=== PATIENT | male | born 1955 | race Caucasian/White ===

== ENCOUNTER 2023-07-06 08:29 | Emergency (ER) | payer MEDICARE, SELFPAY ==
[2023-07-06 08:41] VITALS: BP 149/81; PULSE 81; RESP 18; TEMP 36.4; O2SAT 99; BMI 28.8
--- NOTE | 2023-07-06 09:21 | ED.DIZZY ---
HPI - Dizziness General Time Seen by Provider: 09:21 Date Seen: 07/06/23 Chief Complaint: Unspecified Complaint, Adult Stated Complaint: dizzy / off balance Time Seen by Provider: 07/06/23 09:21 Source: patient and RN notes reviewed Mode of arrival: ambulatory Limitations: no limitations History of Present Illness HPI Narrative: Trista is a 68-year-old male that is coming in with concern of sense of imbalance that he noted last night. He has a part-time job, started noticing it towards the end of his shift. He had significant difficulty walking 50 ft to get into his home from his parking spot. He states he felt like he was almost 8 ft tall and felt wobbly. It was not a sense of spinning, there was no vertigo with this. He has had no headache, no double vision. He has not noticed any focal motor weakness. He does have diabetes and neuropathy. He notes balance can sometimes being issue but this seemed to be significantly worse last night. There is reportedly a history of a TIA about 4 years ago where he had 2 months of double vision. Patient notes he still takes an 81 mg aspirin daily, did take it this morning. He notes no respiratory symptoms, no sense of arrhythmia or palpitations. Patient admits that he does feel much better as a sense of imbalance than he did last night. He notes he slept well. He does wonder if he should be in the ER at this time, did reassure him that I do support him being here. MD elicited complaint: difficulty walking Related Data Home Medications Medication Instructions Recorded Confirmed atorvastatin 07/06/23 gabapentin 07/06/23 lisinopril 07/06/23 metformin 07/06/23 Allergies Allergy/AdvReac Type Severity Reaction Status Date / Time No Known Drug Allergies Allergy Verified 07/06/23 08:46 Review of Systems Status of ROS: Reports: 6 or more systems reviewed and unremarkable except as noted in History and below PFSH PFSH Social History Smoking Status: Never smoker How often do you have a drink containing alcohol: never AUDIT-C Alcohol total score: 0 Non-prescribed substance use: marijuana (any form) Exam Const: Vital Signs, click to edit/add: Vital Signs - 24 hr 07/06/23 08:41 Temperature 97.5 F L Pulse Rate [Pulse Oximeter] 81 Respiratory Rate 18 Blood Pressure [Ri ght Upper Arm] 149/81 H Pulse Oximetry 99 Oxygen Delivery Me thod Room Air Patient is a 68-year-old male that is alert, interactive, no apparent distress. He is sitting up on the edge of the bed when I come in. Pupils are equal round reactive to light, extraocular muscles intact, no nystagmus. Symmetrical facial function, speech is normal. TMs canals normal. Neck is supple, no adenopathy, no thyromegaly masses or nodules. Lungs are clear, good air entry. CV regular rate and rhythm, no murmur, normal S1-S2, no S3-S4. Strength is 5/5 and symmetric. Normal rapid alternating finger movements. No resting tremor noted. Patient does have difficulty with tandem gait and does step out after the 3rd step. He does start to sway with his eyes closed after a couple seconds. His strength in his lower extremities is excellent though. Documenting provider has reviewed patient's vital signs: yes Course Course ED Course: Will have patient monitored on cardiac monitoring and pulse oximetry, doubt arrhythmia but will look for this. He will have an EKG and basic labs done. Have asked nursing staff to get stroke Neurology on the phone to talk to them about this case. I do wonder if this patient should just have an MRI, before setting off on any imaging modality would like their input. Do think that this imbalance could actually be cerebrovascular disease, it is reassuring that he is improved. He does have underlying peripheral neuropathy in his lower extremities but would be unlikely that it would be so of symptomaticly worse last night for short period. Reevaluation(s) Time of Reevaluation #1: 13:30 Reevaluation #1: Have reviewed that imaging is showing no evidence of any stroke. He will stay on his aspirin, follow up in clinic. We did review that if he ever had further concerns of stroke issues, it is always recommended to be evaluated emergently. Consultations Consultation #1: Did speak with Dr. Blackman from stroke Neurology at [facility]. We did have to page them back. She agrees with doing just MRI imaging. She does think we should proceed with the MRA MRI for complete workup given his risk factors. I will contact her back if there is any concerning change on this. I will update patient on the plan. Time: 10:41 Vital Signs Vital signs: Initial Vital Signs Temperature 97.5 F L 07/06/23 08:41 Temperature Source Temporal Artery Scan 07/06/23 08:41 Pulse Rate 81 07/06/23 08:41 Respiratory Rate 18 07/06/23 08:41 Blood Pressure 149/81 H 07/06/23 08:41 Blood Pressure Mean 103 07/06/23 08:41 Blood Pressure Position Sitting 07/06/23 08:41 Pulse Oximetry 99 07/06/23 08:41 Oxygen Delivery Method Room Air 07/06/23 08:41 Vital Signs Temperature 97.5 F L 07/06/23 08:41 Pulse Rate 81 07/06/23 08:41 Respiratory Rate 18 07/06/23 08:41 Blood Pressure 149/81 H 07/06/23 08:41 Pulse Oximetry 99 07/06/23 08:41 Oxygen Delivery Method Room Air 07/06/23 08:41 Temperature 97.5 F L 07/06/23 08:41 Pulse Rate 81 07/06/23 08:41 Respiratory Rate 18 07/06/23 08:41 Blood Pressure 149/81 H 07/06/23 08:41 Pulse Oximetry 99 07/06/23 08:41 Oxygen Delivery Method Room Air 07/06/23 08:41 MDM - Dizziness Lab Data Attestation: I reviewed the patient's lab results. Labs: Lab Results 07/06/23 Range/Units 10:00 WBC 9.22 (4.50-11.00) K/uL RBC 4.82 (4.30-5.90) m/uL Hgb 15.2 (13.5-17.5) gm/dL Hct 44.7 (37.0-53.0) % MCV 93 (80-100) fL MCH 32 (26-34) pg MCHC 34 (32-36) gm/dL RDW Coeff of Luca 12.4 (11.5-15.5) % Plt Count 263 (140-440) K/uL Neut % (Auto) 73.4 H (42.0-72.0) % Lymph % (Auto) 19.3 L (20-44) % [place] % (Auto) 6.1 (0.0-11.0) % Eos % (Auto) 0.8 (0.0-7.0) % Baso % (Auto) 0.3 (0.0-3.0) % Neut # (Auto) 6.80 (1.7-7.0) K/uL Lymph # (Auto) 1.80 (0.90-2.90) K/uL [place] # (Auto) 0.60 (0.00-0.90) K/UL Eos # (Auto) 0.07 (0.00-0.50) K/uL Baso # (Auto) 0.03 (0.00-0.30) K/uL Abs Immat Gran (auto) 0.01 (0.00-0.30) K/uL Imm/Tot Granulo (auto) 0.1 % Sodium 134 L (135-149) mmol/L Potassium 4.4 (3.6-5.1) mmol/L Chloride 100 (96-114) mmol/L Carbon Dioxide 24 (20-32) mmol/L Anion Gap 10 (7-15) mEq/L BUN 23 (7-30) mg/dL Creatinine 0.9 (0.5-1.5) mg/dL Estimated Creat Clear 81.01 Estimated GFR 94 ml/min Glucose 131 H (60-115) mg/dL Calcium 10.0 (8.4-10.6) mg/dL Total Bilirubin 0.4 (0.1-1.5) mg/dL AST 25 (12-35) U/L ALT 38 (4-50) U/L Alkaline Phosphatase 61 (40-150) U/L Total Protein 7.8 (6.0-8.3) g/dL Albumin 4.7 (3.3-5.0) g/dL Imaging Data MR Brain: Attestation: I have reviewed the pertinent imaging results. Radiologist's impression: Patient: TRISTA HICKEY Facility:?[facility] Patient ID:?[id number] Site Patient ID:?[id number]. Site :?1955 Study:?MRI Head W/ and W/O Cont 20 CC DOATER-07/06/2023 12:43:25 PM Ordering Physician:EPRLA PREEZ Final Report: Indication: Unsteadiness. Dizziness. Technique: MRI Head: Performed without and with IV contrast. MRA Head: Performed without IV contrast. MRA Neck: Performed without and with intravenous contrast. Contrast: 20 cc Dotarem. Comparison: None relevant available at the time of interpretation. Findings: MRI Head: The corpus callosum and pituitary gland appear unremarkable. Clivus is intact. Mild degenerative change visualized upper cervical spine. There is no restricted diffusion. No intracranial hemorrhage. The ventricles are proportionate to the cerebral sulci. The 4th ventricle appears midline. The basal cisterns appear patent. No abnormal extra-axial fluid collection identified. Mild parenchymal volume loss. Mild scattered T2 FLAIR hyperintense foci within the subcortical and periventricular white matter, favored to represent chronic ischemic microvascular disease. There is no intracranial mass, abnormal mass-effect or midline shift identified. No abnormal enhancement. The orbits are preserved. Mild paranasal sinus mucosal disease. Sebaceous cyst left parietal scalp. MRA Head: The visualized first and second order intracranial vessels are unremarkable. No occlusion/filling defect or acquired arterial stenosis identified. No aneurysm or vascular malformation seen. MRA Neck: Suboptimal due to contrast bolus timing. No definite evidence for hemodynamically significant internal carotid artery stenosis by NASCET criteria. The cervical segments of both vertebral arteries are patent as visualized given poor contrast opacification. Impression: MRI Head: 1. No acute/subacute infarct. 2. Mild chronic ischemic microvascular disease. MRA Head: 1. No hemodynamically significant stenosis or occlusion. 2. No aneurysm. MRA Neck: 1. Suboptimal due to poor contrast bolus timing. 2. No evidence for hemodynamically significant ICA stenosis by NASCET criteria. Dictated by Harman Mcclellan MD @ 07/06/2023 1:02:31 PM (Electronic Signature) ECG Data Attestation: I personally reviewed and interpreted this ECG as follows: (Normal sinus rhythm, 66 beats per minute. QT corrected 410 milliseconds. No ischemia, no arrhythmia.) ECG interpretation date: 07/06/23 ECG interpretation time: 10:05 Critical Care Time Critical Care Time Critical Care Time: No Discharge Plan Discharge Clinical Impression: Dysequilibrium Patient Disposition: Home, Self-Care Condition: Stable Instructions: Vertigo (ED), Lightheadedness (ED) Additional Instructions: Need to follow-up with your primary care provider within the next week. I would certainly consider getting a referral to physical therapy to see if this helps with balance. There is no acute evidence of stroke today. You still should maintain on your 81 mg aspirin given your history. Activity Level: Activity as Tolerated Prescriptions: No Action gabapentin metformin lisinopril atorvastatin Follow Up/Referrals: Jason Rice PA-C [Primary Care Provider] - Stand Alone Forms: [employer] Info Instructions
[2023-07-06 10:05] LABS: Basophils Absolute Auto 0.03 K/uL (0.00-0.30); Basophils Percent Auto 0.3 % (0.0-3.0); Eosinophils Absolute Auto 0.07 K/uL (0.00-0.50); Eosinophils Percent Auto 0.8 % (0.0-7.0); Hematocrit 44.7 % (37.0-53.0); Hemoglobin* 15.2 gm/dL (13.5-17.5); Immature Granulocytes Abs Auto 0.01 K/uL (0.00-0.30); Immature Granulocytes Pct Auto 0.1 %; Lymphocytes Percent Auto 19.3 % (20-44); Mean Corpuscular HGB Conc 34 gm/dL (32-36); Mean Corpuscular Hemoglobin 32 pg (26-34); Mean Corpuscular Volume 93 fL (80-100); Monocytes Percent Auto 6.1 % (0.0-11.0); Neutrophils Percent Auto 73.4 % (42.0-72.0); Platelet Count* 263 K/uL (140-440); RDW Coefficient of Variation % 12.4 % (11.5-15.5); Red Blood Count 4.82 m/uL (4.30-5.90); White Blood Count* 9.22 K/uL (4.50-11.00)
[2023-07-06 10:14] LABS: Slide Review Reflex No
[2023-07-06 10:26] LABS: Albumin* 4.7 g/dL (3.3-5.0); Chloride* 100 mmol/L (96-114)
[2023-07-06 10:27] LABS: Potassium* 4.4 mmol/L (3.6-5.1); Sodium* 134 mmol/L (135-149)
[2023-07-06 10:29] LABS: Alkaline Phosphatase* 61 U/L (40-150); Anion Gap 10 mEq/L (7-15); Aspartate Amino Transferase* 25 U/L (12-35); Bilirubin Total* 0.4 mg/dL (0.1-1.5); Blood Urea Nitrogen* 23 mg/dL (7-30); Carbon Dioxide* 24 mmol/L (20-32); Creatinine* 0.9 mg/dL (0.5-1.5); Est. Creatinine Clearance* 81.01; Estimated Glomerular Filt Rate 94 ml/min; Total Protein* 7.8 g/dL (6.0-8.3)
[2023-07-06 10:30] LABS: Alanine Aminotransferase* 38 U/L (4-50); Glucose* 131 mg/dL (60-115)
--- NOTE | 2023-07-06 10:37 | MR_ITS ---
Final Report Patient: TRISTA HICKEY Facility:?[facility] Patient ID:?[id number] Site Patient ID:?[id number]. Site :?1955 Study:?MRI Head W/ and W/O Cont 20 CC DOATERM-07/06/2023 12:43:25 PM Ordering Physician:PERLA PEREZ Final Report: Indication: Unsteadiness. Dizziness. Technique: MRI Head: Performed without and with IV contrast. MRA Head: Performed without IV contrast. MRA Neck: Performed without and with intravenous contrast. Contrast: 20 cc Dotarem. Comparison: None relevant available at the time of interpretation. Findings: MRI Head: The corpus callosum and pituitary gland appear unremarkable. Clivus is intact. Mild degenerative change visualized upper cervical spine. There is no restricted diffusion. No intracranial hemorrhage. The ventricles are proportionate to the cerebral sulci. The 4th ventricle appears midline. The basal cisterns appear patent. No abnormal extra-axial fluid collection identified. Mild parenchymal volume loss. Mild scattered T2 FLAIR hyperintense foci within the subcortical and periventricular white matter, favored to represent chronic ischemic microvascular disease. There is no intracranial mass, abnormal mass-effect or midline shift identified. No abnormal enhancement. The orbits are preserved. Mild paranasal sinus mucosal disease. Sebaceous cyst left parietal scalp. MRA Head: The visualized first and second order intracranial vessels are unremarkable. No occlusion/filling defect or acquired arterial stenosis identified. No aneurysm or vascular malformation seen. MRA Neck: Suboptimal due to contrast bolus timing. No definite evidence for hemodynamically significant internal carotid artery stenosis by NASCET criteria. The cervical segments of both vertebral arteries are patent as visualized given poor contrast opacification. Impression: MRI Head: 1. No acute/subacute infarct. 2. Mild chronic ischemic microvascular disease. MRA Head: 1. No hemodynamically significant stenosis or occlusion. 2. No aneurysm. MRA Neck: 1. Suboptimal due to poor contrast bolus timing. 2. No evidence for hemodynamically significant ICA stenosis by NASCET criteria. Dictated by Harman Mcclellan MD @ 07/06/2023 1:02:31 PM (Electronic Signature
--- NOTE | 2023-07-06 10:37 | MR_ITS ---
Final Report Patient: TRISTA HICKEY Facility:?[facility] Patient ID:?[id number] Site Patient ID:?[id number]. Site :?1955 Study:?MRI Head MRA W/O-07/06/2023 12:44:49 PM Ordering Physician:PERLA PEREZ Final Report: Indication: Unsteadiness. Dizziness. Technique: MRI Head: Performed without and with IV contrast. MRA Head: Performed without IV contrast. MRA Neck: Performed without and with intravenous contrast. Contrast: 20 cc Dotarem. Comparison: None relevant available at the time of interpretation. Findings: MRI Head: The corpus callosum and pituitary gland appear unremarkable. Clivus is intact. Mild degenerative change visualized upper cervical spine. There is no restricted diffusion. No intracranial hemorrhage. The ventricles are proportionate to the cerebral sulci. The 4th ventricle appears midline. The basal cisterns appear patent. No abnormal extra-axial fluid collection identified. Mild parenchymal volume loss. Mild scattered T2 FLAIR hyperintense foci within the subcortical and periventricular white matter, favored to represent chronic ischemic microvascular disease. There is no intracranial mass, abnormal mass-effect or midline shift identified. No abnormal enhancement. The orbits are preserved. Mild paranasal sinus mucosal disease. Sebaceous cyst left parietal scalp. MRA Head: The visualized first and second order intracranial vessels are unremarkable. No occlusion/filling defect or acquired arterial stenosis identified. No aneurysm or vascular malformation seen. MRA Neck: Suboptimal due to contrast bolus timing. No definite evidence for hemodynamically significant internal carotid artery stenosis by NASCET criteria. The cervical segments of both vertebral arteries are patent as visualized given poor contrast opacification. Impression: MRI Head: 1. No acute/subacute infarct. 2. Mild chronic ischemic microvascular disease. MRA Head: 1. No hemodynamically significant stenosis or occlusion. 2. No aneurysm. MRA Neck: 1. Suboptimal due to poor contrast bolus timing. 2. No evidence for hemodynamically significant ICA stenosis by NASCET criteria. Dictated by Harman Mcclellan MD @ 07/06/2023 1:03:16 PM (Electronic Signature)
--- NOTE | 2023-07-06 10:37 | MR_ITS ---
Final Report Patient: TRISTA HICKEY Facility:?[facility] Patient ID:?[id number] Site Patient ID:?[id number]. Site :?1955 Study:?MRI Neck Angio W/ and W/O Cont 20 CC DOATERM-07/06/2023 12:46:10 PM Ordering Physician:PERLA PEREZ Final Report: Indication: Unsteadiness. Dizziness. Technique: MRI Head: Performed without and with IV contrast. MRA Head: Performed without IV contrast. MRA Neck: Performed without and with intravenous contrast. Contrast: 20 cc Dotarem. Comparison: None relevant available at the time of interpretation. Findings: MRI Head: The corpus callosum and pituitary gland appear unremarkable. Clivus is intact. Mild degenerative change visualized upper cervical spine. There is no restricted diffusion. No intracranial hemorrhage. The ventricles are proportionate to the cerebral sulci. The 4th ventricle appears midline. The basal cisterns appear patent. No abnormal extra-axial fluid collection identified. Mild parenchymal volume loss. Mild scattered T2 FLAIR hyperintense foci within the subcortical and periventricular white matter, favored to represent chronic ischemic microvascular disease. There is no intracranial mass, abnormal mass-effect or midline shift identified. No abnormal enhancement. The orbits are preserved. Mild paranasal sinus mucosal disease. Sebaceous cyst left parietal scalp. MRA Head: The visualized first and second order intracranial vessels are unremarkable. No occlusion/filling defect or acquired arterial stenosis identified. No aneurysm or vascular malformation seen. MRA Neck: Suboptimal due to contrast bolus timing. No definite evidence for hemodynamically significant internal carotid artery stenosis by NASCET criteria. The cervical segments of both vertebral arteries are patent as visualized given poor contrast opacification. Impression: MRI Head: 1. No acute/subacute infarct. 2. Mild chronic ischemic microvascular disease. MRA Head: 1. No hemodynamically significant stenosis or occlusion. 2. No aneurysm. MRA Neck: 1. Suboptimal due to poor contrast bolus timing. 2. No evidence for hemodynamically significant ICA stenosis by NASCET criteria. Dictated by Harman Mcclellan MD @ 07/06/2023 1:04:00 PM (Electronic Signature)
== END 2023-07-06 13:35 | disposition home or self-care (01) ==
PROVIDERS: Emergency Provider Family Medicine; PCP Physician Assistant
DX: R42 Dizziness and giddiness (principal)
CPT/HCPCS: 36415; 70544; 70549; 70553; 80053; 85025; 93005; 94761; 99284; 99285; A9575